=== PATIENT | female | born 1940 | race African-American/Black ===

== ENCOUNTER 2019-08-22 12:24 | Inpatient (IN) | payer MEDICARE, MEDICAID ==
[~2019-08-22] VITALS: Ht 154.9 cm; Wt 117.9 kg
[~2019-08-22 12:24] MED LIST: ACET-3161 PO; ALLO100T57 PO; AMLO10TA4 PO; ASPI-1079 PO; CYAN100069 PO; DOCUSATE PO; FURO40TA5 PO; GABA-531 PO; GLIP10TA3 PO; HYDR-3512 PO; INSULIN SUBCUT; KDUR10 PO; LINA5TAB PO; LORA10TA7 PO; LOSA100T3 PO; MECL12.584 PO; METO5TAB86 PO; MULT-1146 PO; NAPR-679 PO; NEPA1.7D OP; NITR0.4T49 SL; NPH,100V11 SQ; SIMV20TA6 PO; SYSOS OP; TRAV5DRO4 OP; TRU10 EACHEYE; [UNRECOGNIZED DRUG - CODE] OP; [UNRECOGNIZED DRUG - CODE] PO; [UNRECOGNIZED DRUG - CODE] PO
[2019-08-22] MEDS ORDERED: IPRATROPIUM BROMIDE (0.02%) 0.5MG/2.5ML NEB HHN ONE (12:45)
[2019-08-22] MEDS ORDERED: ALBUTEROL (0.083%) 2.5MG/3ML NEB HHN ONE (12:45)
[2019-08-22] MEDS ORDERED: NITROGLYCERIN 50MG PREMIX 250 ML IV ONE (12:45)
[2019-08-22] MEDS ORDERED: METHYLPREDNISOLONE SOD SUCC 125 MG/2 ML VIAL IV ONE (12:45)
[2019-08-22 13:15] LABS: HEMATOCRIT. 32.7 % (36.0-48.0); HEMOGLOBIN. 10.1 g/dL (12.0-16.0); MEAN CORPUSCULAR HEMOGLOBIN 26.1 pg (28.0-32.0); MEAN CORPUSCULAR VOLUME 84.2 fL (81.0-99.0); MEAN PLATELET VOLUME 11.3 fl (7.4-10.4); PLATELET 123 x1000/uL (130-400); RED BLOOD CELL COUNT 3.88 mill/uL (4.2-5.4); RED CELL DISTRIBUTION WIDTH 21.9 % (11.6-14.6)
[2019-08-22 13:23] LABS: CHLORIDE 115 mEq/L (98-107)
[2019-08-22 13:51] LABS: PLATELET ESTIMATE SLIGHTLY DECREASED
[2019-08-22 14:31] LABS: BG BILEVEL POS AIRWAY PRESSURE 15/5; BG CARBOXYHEMOGLOBIN 0.1 % (0.5-1.5); BG DEOXYHEMOGLOBIN 0.5 % (0.0-5.0); BG FRACTION INSPIRED OXYGEN 60; BG HCO3 ACT 24.2 mmol/L (22.0-26.0); BG METHEMOGLOBIN 0.4 % (0.0-1.5); BG OXYGEN SATURATION 99.5 % (92.0-98.5); BG PCO2 53.5 mmHg (35.0-45.0); BG PH 7.274 (7.350-7.450); BG PO2 448.6 mmHg (75.0-100.0); BG SAMPLE SITE RIGHT RADIAL; BG TOTAL HEMOGLOBIN 10.8 g/dL (12.0-18.0); BG VENT MODE MASK - BIPAP
[2019-08-22] MEDS ORDERED: IPRATROPIUM/ALBUTEROL 0.5-3(2.5)MG/3ML NEB HHN PRN (15:30)
[2019-08-22 22:00] VITALS: BP 180/70
[2019-08-22] MEDS: GUAIFENESIN 600MG ER TABLET PO SCH (22:37)
[2019-08-22] MEDS: CLONIDINE 0.2MG TABLET PO PRN (22:38)
[2019-08-22] MEDS: METHYLPREDNISOLONE SOD SUCC 40 MG/ML VIAL IV SCH (22:38)
[2019-08-22 23:06] VITALS: BP 175/70
[2019-08-23] VITALS (12 sets, daily range): BP systolic 163–197; BP diastolic 57–95
[2019-08-23] MEDS: IPRATROPIUM/ALBUTEROL 0.5-3(2.5)MG/3ML NEB HHN SCH ×6 (00:24→22:15)
[2019-08-23] MEDS: CLONIDINE 0.2MG TABLET PO PRN ×5 (01:11→18:06)
[2019-08-23] MEDS: METHYLPREDNISOLONE SOD SUCC 40 MG/ML VIAL IV SCH ×3 (06:29→21:53)
[2019-08-23] MEDS: GUAIFENESIN 600MG ER TABLET PO SCH ×2 (09:03→21:53)
[2019-08-23 09:27] LABS: BG BASE EXCESS -4.4 mmol/L (-2.0-2.0); BG BILEVEL POS AIRWAY PRESSURE 15/5; BG CARBOXYHEMOGLOBIN 0.1 % (0.5-1.5); BG FRACTION INSPIRED OXYGEN 40; BG HCO3 ACT 22.7 mmol/L (22.0-26.0); BG METHEMOGLOBIN 0.3 % (0.0-1.5); BG OXYHEMOGLOBIN 98.6 % (94.0-97.0); BG PCO2 51.5 mmHg (35.0-45.0); BG PH 7.263 (7.350-7.450); BG PO2 159.4 mmHg (75.0-100.0); BG SAMPLE SITE RIGHT RADIAL; BG TOTAL HEMOGLOBIN 10.5 g/dL (12.0-18.0); BG VENT MODE MASK - BIPAP; BG VENT RATE 18 set
[2019-08-23] MEDS ORDERED: DEXTROSE 50% WATER 50ML SYRINGE IV PRN (10:15)
[2019-08-23] MEDS: HYDRALAZINE HCL 50MG TABLET PO SCH ×2 (12:12→21:52)
[2019-08-23] MEDS: GABAPENTIN 300MG CAPSULE PO SCH ×2 (12:12→21:53)
[2019-08-23] MEDS: AMLODIPINE 5MG TABLET PO SCH ×2 (12:12→21:53)
[2019-08-23] MEDS: BLOOD SUGAR DIAGNOSTIC STRIP TEST SCH ×3 (12:44→21:00)
[2019-08-23] MEDS: ENOXAPARIN 40MG/0.4ML SYR SUBCUT SCH (12:54)
[2019-08-23] MEDS: INSULIN LISPRO 100 UNITS/ML SUBCUT SCH ×3 (12:55→22:12)
[2019-08-23 14:15] LABS: HEMOGLOBIN. 9.9 g/dL (12.0-16.0); MEAN CORPUSCULAR HEMOGLOBIN 26.1 pg (28.0-32.0); MEAN CORPUSCULAR VOLUME 84.1 fL (81.0-99.0); MEAN PLATELET VOLUME 11.1 fl (7.4-10.4); PLATELET 110 x1000/uL (130-400); RED CELL DISTRIBUTION WIDTH 21.4 % (11.6-14.6)
[2019-08-23 14:17] LABS: CHLORIDE 110 mEq/L (98-107)
[2019-08-23 14:40] LABS: NUCLEATED RED BLOOD CELLS 1 /100 WBC; PLATELET ESTIMATE SLIGHTLY DECREASED
[2019-08-23] MEDS: INSULIN GLARGINE UD 100 UNITS/ML SYR SUBCUT SCH (15:16)
[2019-08-23] MEDS ORDERED: SODIUM BICARBONATE 8.4% 1 MEQ/ML 50ML SYR IV NR ×2 (15:39→23:00)
[2019-08-23] MEDS ORDERED: CALCIUM CHLORIDE 1GM/10ML SYR IV NR (15:42)
[2019-08-23] MEDS ORDERED: DEXTROSE 50% WATER 50ML SYRINGE IV NR (16:30)
[2019-08-23] MEDS ORDERED: INSULIN REGULAR (HUMULIN R) UD 100 UNITS/ML SYR IV NR (16:30)
[2019-08-23] MEDS ORDERED: SODIUM POLYSTYRENE SULFONATE 15 G/60 ML BOT PO NR (16:30)
[2019-08-23] MEDS ORDERED: FLUO15CR2 TP (17:22)
[2019-08-23] MEDS ORDERED: BUME2TAB7 PO (17:22)
[2019-08-23] MEDS ORDERED: ISOS20TA57 PO (17:22)
[2019-08-23] MEDS ORDERED: HYDR-4134 PO (17:22)
[2019-08-23] MEDS ORDERED: TC1U15 TP (17:22)
[2019-08-23] MEDS ORDERED: ALBU18HF2 IH (17:22)
[2019-08-23] MEDS ORDERED: MUPI1OIN4 TP (17:22)
[2019-08-23] MEDS ORDERED: LINA5TAB PO (17:22)
[2019-08-23] MEDS ORDERED: ATEN-42 PO (17:22)
[2019-08-23] MEDS ORDERED: FAMO20TA8 PO (17:22)
[2019-08-23] MEDS ORDERED: CALC-889 MT (17:22)
[2019-08-23] MEDS: ATENOLOL 25MG TABLET PO SCH (21:53)
[2019-08-23] MEDS: FAMOTIDINE 20MG TABLET PO SCH (21:53)
[2019-08-24] VITALS (13 sets, daily range): BP systolic 136–188; BP diastolic 53–80
[2019-08-24] MEDS ORDERED: INSULIN REGULAR (HUMULIN R) UD 100 UNITS/ML SYR IV NR
[2019-08-24] MEDS ORDERED: DEXTROSE 50% WATER 50ML SYRINGE IV NR
[2019-08-24] MEDS: CLONIDINE 0.2MG TABLET PO PRN (00:52)
[2019-08-24] MEDS ORDERED: SODIUM POLYSTYRENE SULFONATE 15 G/60 ML BOT PO NR (01:00)
[2019-08-24] MEDS: IPRATROPIUM/ALBUTEROL 0.5-3(2.5)MG/3ML NEB HHN SCH ×6 (02:00→19:49)
[2019-08-24 06:09] LABS: HEMATOCRIT. 31.7 % (36.0-48.0); HEMOGLOBIN. 9.9 g/dL (12.0-16.0); MEAN CORPUSCULAR HEMOGLOBIN 25.7 pg (28.0-32.0); MEAN CORPUSCULAR VOLUME 82.6 fL (81.0-99.0); MEAN PLATELET VOLUME 11.3 fl (7.4-10.4); PLATELET 107 x1000/uL (130-400); RED BLOOD CELL COUNT 3.84 mill/uL (4.2-5.4); RED CELL DISTRIBUTION WIDTH 20.6 % (11.6-14.6)
[2019-08-24] MEDS: GABAPENTIN 300MG CAPSULE PO SCH ×3 (06:46→20:54)
[2019-08-24] MEDS: METHYLPREDNISOLONE SOD SUCC 40 MG/ML VIAL IV SCH ×3 (06:46→20:55)
[2019-08-24] MEDS: GLIPIZIDE 10MG TABLET PO SCH (06:46)
[2019-08-24] MEDS: HYDRALAZINE HCL 50MG TABLET PO SCH ×3 (06:47→20:54)
[2019-08-24] MEDS: BLOOD SUGAR DIAGNOSTIC STRIP TEST SCH ×4 (07:13→20:55)
[2019-08-24 07:52] LABS: BG BASE EXCESS -3.1 mmol/L (-2.0-2.0); BG DEOXYHEMOGLOBIN 2.2 % (0.0-5.0); BG HCO3 ACT 23.2 mmol/L (22.0-26.0); BG METHEMOGLOBIN 0.2 % (0.0-1.5); BG OXYGEN SATURATION 97.8 % (92.0-98.5); BG OXYHEMOGLOBIN 97.6 % (94.0-97.0); BG PCO2 47.1 mmHg (35.0-45.0); BG PO2 111.6 mmHg (75.0-100.0); BG SAMPLE SITE RIGHT RADIAL; BG TOTAL HEMOGLOBIN 10.4 g/dL (12.0-18.0); BG VENT MODE NASAL CANNULA
[2019-08-24] MEDS: ISOSORBIDE MONONITRATE 30MG TABLET SR 24HR PO SCH (08:09)
[2019-08-24] MEDS: AMLODIPINE 5MG TABLET PO SCH ×2 (08:09→20:55)
[2019-08-24] MEDS: GUAIFENESIN 600MG ER TABLET PO SCH ×2 (08:09→20:54)
[2019-08-24] MEDS: ALLOPURINOL 100 MG TABLET PO SCH (08:09)
[2019-08-24] MEDS: LOSARTAN POTASSIUM 100 MG TABLET PO SCH (08:09)
[2019-08-24] MEDS: ASPIRIN 81MG TABLET PO SCH (08:10)
[2019-08-24] MEDS: ATENOLOL 25MG TABLET PO SCH (08:10)
[2019-08-24] MEDS: LINAGLIPTIN 5MG TABLET PO SCH (08:10)
[2019-08-24] MEDS: INSULIN LISPRO 100 UNITS/ML SUBCUT SCH ×4 (08:11→21:10)
[2019-08-24 09:56] LABS: PLATELET ESTIMATE DECREASED
[2019-08-24] MEDS: INSULIN GLARGINE UD 100 UNITS/ML SYR SUBCUT SCH (10:11)
[2019-08-24 12:05] LABS: CLARITY URINE TURBID (CLEAR); COLOR URINE YELLOW (YELLOW); KETONES URINE NEGATIVE (NEGATIVE); LEUKOCYTE ESTERASE URINE 3+ (NEGATIVE); NITRITE URINE NEGATIVE (NEGATIVE); OCCULT BLOOD URINE 2+ (NEGATIVE); PROTEIN URINE 3+ (NEGATIVE); SPECIFIC GRAVITY URINE 1.015 (1.005-1.030); UROBILINOGEN URINE 0.2 E.U./dL (0.2-1.0)
[2019-08-24] MEDS: ENOXAPARIN 40MG/0.4ML SYR SUBCUT SCH (13:03)
[2019-08-24] MEDS: FAMOTIDINE 20MG TABLET PO SCH (20:54)
[2019-08-25] VITALS (12 sets, daily range): BP systolic 135–162; BP diastolic 60–73
[2019-08-25] MEDS: IPRATROPIUM/ALBUTEROL 0.5-3(2.5)MG/3ML NEB HHN SCH ×6 (00:37→20:18)
[2019-08-25 05:53] LABS: HEMATOCRIT. 29.9 % (36.0-48.0); HEMOGLOBIN. 9.4 g/dL (12.0-16.0); MEAN CORPUSCULAR HEMOGLOBIN 25.8 pg (28.0-32.0); MEAN CORPUSCULAR VOLUME 81.7 fL (81.0-99.0); MEAN PLATELET VOLUME 10.8 fl (7.4-10.4); PLATELET 100 x1000/uL (130-400); RED BLOOD CELL COUNT 3.66 mill/uL (4.2-5.4); RED CELL DISTRIBUTION WIDTH 20.8 % (11.6-14.6)
[2019-08-25] MEDS: METHYLPREDNISOLONE SOD SUCC 40 MG/ML VIAL IV SCH ×2 (05:54→13:16)
[2019-08-25] MEDS: GABAPENTIN 300MG CAPSULE PO SCH ×3 (05:55→21:41)
[2019-08-25] MEDS: HYDRALAZINE HCL 50MG TABLET PO SCH (05:55)
[2019-08-25] MEDS: GLIPIZIDE 10MG TABLET PO SCH (05:55)
[2019-08-25] MEDS: BLOOD SUGAR DIAGNOSTIC STRIP TEST SCH ×4 (08:06→21:43)
[2019-08-25] MEDS: AMLODIPINE 5MG TABLET PO SCH ×2 (08:29→21:41)
[2019-08-25] MEDS: LOSARTAN POTASSIUM 100 MG TABLET PO SCH (08:29)
[2019-08-25] MEDS: ASPIRIN 81MG TABLET PO SCH (08:29)
[2019-08-25] MEDS: ALLOPURINOL 100 MG TABLET PO SCH (08:30)
[2019-08-25] MEDS: ISOSORBIDE MONONITRATE 30MG TABLET SR 24HR PO SCH (08:30)
[2019-08-25] MEDS: ATENOLOL 25MG TABLET PO SCH ×2 (08:30→21:42)
[2019-08-25] MEDS: GUAIFENESIN 600MG ER TABLET PO SCH ×2 (08:31→21:42)
[2019-08-25] MEDS: INSULIN LISPRO 100 UNITS/ML SUBCUT SCH ×4 (08:33→22:10)
[2019-08-25] MEDS: LINAGLIPTIN 5MG TABLET PO SCH (08:43)
[2019-08-25] MEDS: INSULIN GLARGINE UD 100 UNITS/ML SYR SUBCUT SCH (10:17)
[2019-08-25] MEDS ORDERED: BUMETANIDE 1MG TABLET PO SCH ×2 (13:00→15:00)
[2019-08-25] MEDS: HYDRALAZINE HCL 100MG TABLET PO SCH ×2 (13:16→21:42)
[2019-08-25] MEDS: ENOXAPARIN 40MG/0.4ML SYR SUBCUT SCH (13:17)
[2019-08-25 16:11] LABS: PLATELET ESTIMATE DECREASED
[2019-08-25] MEDS: BUMETANIDE 1MG TABLET PO SCH (17:56)
[2019-08-25] MEDS: FAMOTIDINE 20MG TABLET PO SCH (21:41)
[2019-08-26] VITALS (10 sets, daily range): BP systolic 112–164; BP diastolic 53–79
[2019-08-26] MEDS: IPRATROPIUM/ALBUTEROL 0.5-3(2.5)MG/3ML NEB HHN SCH ×4 (00:18→12:19)
[2019-08-26 06:30] LABS: HEMATOCRIT. 30.2 % (36.0-48.0); HEMOGLOBIN. 9.6 g/dL (12.0-16.0); MEAN CORPUSCULAR HEMOGLOBIN 25.7 pg (28.0-32.0); RED BLOOD CELL COUNT 3.73 mill/uL (4.2-5.4); RED CELL DISTRIBUTION WIDTH 20.1 % (11.6-14.6)
[2019-08-26] MEDS: GABAPENTIN 300MG CAPSULE PO SCH ×2 (06:40→13:14)
[2019-08-26] MEDS: HYDRALAZINE HCL 100MG TABLET PO SCH ×2 (06:41→13:15)
[2019-08-26] MEDS: GLIPIZIDE 10MG TABLET PO SCH (06:41)
[2019-08-26] MEDS: BLOOD SUGAR DIAGNOSTIC STRIP TEST SCH ×2 (06:41→11:44)
[2019-08-26] MEDS: ISOSORBIDE MONONITRATE 30MG TABLET SR 24HR PO SCH (08:39)
[2019-08-26] MEDS: BUMETANIDE 1MG TABLET PO SCH (08:39)
[2019-08-26] MEDS: GUAIFENESIN 600MG ER TABLET PO SCH (08:39)
[2019-08-26] MEDS: ASPIRIN 81MG TABLET PO SCH (08:39)
[2019-08-26] MEDS: ALLOPURINOL 100 MG TABLET PO SCH (08:39)
[2019-08-26] MEDS: LOSARTAN POTASSIUM 100 MG TABLET PO SCH (08:39)
[2019-08-26] MEDS: LINAGLIPTIN 5MG TABLET PO SCH (08:39)
[2019-08-26] MEDS: ATENOLOL 25MG TABLET PO SCH (08:40)
[2019-08-26] MEDS: AMLODIPINE 5MG TABLET PO SCH (08:40)
[2019-08-26] MEDS: INSULIN LISPRO 100 UNITS/ML SUBCUT SCH ×2 (08:41→13:17)
[2019-08-26] MEDS ORDERED: METHYLPREDNISOLONE SOD SUCC 40 MG/ML VIAL IV SCH (09:00)
[2019-08-26 10:28] LABS: PLATELET 106 x1000/uL (130-400)
[2019-08-26 10:34] LABS: NUCLEATED RED BLOOD CELLS 2 /100 WBC; PLATELET ESTIMATE SLIGHTLY DECREASED
[2019-08-26] MEDS: INSULIN GLARGINE UD 100 UNITS/ML SYR SUBCUT SCH (10:52)
[2019-08-26] MEDS: ENOXAPARIN 40MG/0.4ML SYR SUBCUT SCH (13:15)
[2019-08-26] MEDS ORDERED: FLUCONAZOLE 150MG TABLET PO NR (16:00)
== END 2019-08-26 15:32 | disposition home health service (06) | DRG 291 ==
LOC: ER 12:24 → CANRESERV 15:23 → ENRESERV 15:23 → EDBEDREQSVC 16:28 → 5EST 16:45 → EDBEDREQ 16:48 → ENRESERV 19:30 → 5EST 22:04
PROVIDERS: ADMIT Family Medicine Adult Medicine; ATTEND Family Medicine Adult Medicine
PROC: 5A09357 Assistance with Respiratory Ventilation, Less than 24 Consecutive Hours, Continuous Positive Airway Pressure (ICD-10-PCS; principal; 2019-08-22)
PROC: 5A09357 Assistance with Respiratory Ventilation, Less than 24 Consecutive Hours, Continuous Positive Airway Pressure (ICD-10-PCS; 2019-08-24)
PROC: 5A09357 Assistance with Respiratory Ventilation, Less than 24 Consecutive Hours, Continuous Positive Airway Pressure (ICD-10-PCS; 2019-08-25)
PROC: 5A09357 Assistance with Respiratory Ventilation, Less than 24 Consecutive Hours, Continuous Positive Airway Pressure (ICD-10-PCS; 2019-08-26)
DX: I13.0 Hypertensive heart and chronic kidney disease with heart failure and stage 1 through stage 4 chronic kidney disease, or unspecified chronic kidney disease (principal); J96.00 Acute respiratory failure, unspecified whether with hypoxia or hypercapnia; I50.43 Acute on chronic combined systolic (congestive) and diastolic (congestive) heart failure; J44.1 Chronic obstructive pulmonary disease with (acute) exacerbation; N18.4 Chronic kidney disease, stage 4 (severe); N39.0 Urinary tract infection, site not specified; N17.9 Acute kidney failure, unspecified; Z68.42 Body mass index [BMI] 45.0-49.9, adult; D64.9 Anemia, unspecified; E11.22 Type 2 diabetes mellitus with diabetic chronic kidney disease; E78.5 Hyperlipidemia, unspecified; E87.5 Hyperkalemia; D69.6 Thrombocytopenia, unspecified; I44.1 Atrioventricular block, second degree; E66.01 Morbid (severe) obesity due to excess calories; B37.3 Candidiasis of vulva and vagina; E11.40 Type 2 diabetes mellitus with diabetic neuropathy, unspecified; G47.33 Obstructive sleep apnea (adult) (pediatric); I27.29 Other secondary pulmonary hypertension; I49.5 Sick sinus syndrome; M10.9 Gout, unspecified; Z79.4 Long term (current) use of insulin; Z90.710 Acquired absence of both cervix and uterus; Z95.0 Presence of cardiac pacemaker; Z99.81 Dependence on supplemental oxygen; Z88.0 Allergy status to penicillin; Z79.82 Long term (current) use of aspirin; Z79.899 Other long term (current) drug therapy; Z79.1 Long term (current) use of non-steroidal anti-inflammatories (NSAID)
CPT/HCPCS: 36415; 36600; 71045; 76770; 80048; 81003; 82375; 82570; 82575; 82805; 82962; 83735; 83880; 84132; 84156; 84484; 93005; 93306; 94640; 94660; 96374; 97162; 99291; J1650; J1815; J2920; J2930; J3490; J7611; J7620; A4315

== ENCOUNTER 2019-10-24 13:40 | Inpatient (IN) | payer MEDICARE, MEDICAID ==
[~2019-10-24] VITALS: Ht 154.9 cm; Wt 107.0 kg
[~2019-10-24 13:40] MED LIST changes: -ACET-3161 PO; +ALBU18HF2 IH; -AMLO10TA4 PO; +ATEN-42 PO; +BUME2TAB7 PO; +CALC-889 MT; -CYAN100069 PO; -DOCUSATE PO; +FAMO20TA8 PO; +FLUO15CR2 TP; -FURO40TA5 PO; -HYDR-3512 PO; +HYDR-4134 PO; +ISOS20TA57 PO; -KDUR10 PO; -MECL12.584 PO; -METO5TAB86 PO; -MULT-1146 PO; +MUPI1OIN4 TP; -NAPR-679 PO; -NEPA1.7D OP; -NITR0.4T49 SL; -NPH,100V11 SQ; -SIMV20TA6 PO; -SYSOS OP; +TC1U15 TP; -[UNRECOGNIZED DRUG - CODE] OP; -[UNRECOGNIZED DRUG - CODE] PO; -[UNRECOGNIZED DRUG - CODE] PO
[2019-10-24] MEDS ORDERED: IPRATROPIUM BROMIDE (0.02%) 0.5MG/2.5ML NEB HHN STA (15:25)
[2019-10-24] MEDS ORDERED: ALBUTEROL (0.083%) 2.5MG/3ML NEB HHN STA (15:25)
[2019-10-24 16:01] LABS: CHLORIDE 118 mEq/L (98-107)
[2019-10-24 16:08] LABS: HEMATOCRIT. 31.8 % (36.0-48.0); HEMOGLOBIN. 9.9 g/dL (12.0-16.0); MEAN CORPUSCULAR HEMOGLOBIN 25.6 pg (28.0-32.0); MEAN CORPUSCULAR VOLUME 82.4 fL (81.0-99.0); PLATELET 90 x1000/uL (130-400); RED BLOOD CELL COUNT 3.87 mill/uL (4.2-5.4); RED CELL DISTRIBUTION WIDTH 20.8 % (11.6-14.6)
[2019-10-24 17:35] LABS: PLATELET ESTIMATE DECREASED
[2019-10-24] MEDS ORDERED: FUROSEMIDE 40MG/4ML VIAL IVP ONE (19:30)
[2019-10-25] MEDS ORDERED: IPRATROPIUM/ALBUTEROL 0.5-3(2.5)MG/3ML NEB NEB PRN (00:15)
[2019-10-25] MEDS ORDERED: CLONIDINE 0.1MG TABLET PO PRN (00:15)
[2019-10-25] MEDS ORDERED: MAGNESIUM/ALUMINUM HYDROXIDE/SIMETHICONE 30ML UDC PO PRN (00:15)
[2019-10-25] MEDS ORDERED: ONDANSETRON HCL 4MG/2ML INJ IV PRN (00:15)
[2019-10-25] MEDS ORDERED: MORPHINE SULFATE 2 MG/ML CPJ (NOT FOR IM USE) IV PRN (00:15)
[2019-10-25] MEDS ORDERED: DOCUSATE SODIUM 100MG CAPSULE PO PRN (00:15)
[2019-10-25] MEDS ORDERED: ACETAMINOPHEN 325MG TABLET PO PRN (00:15)
[2019-10-25] MEDS: AMLODIPINE 10MG TABLET PO SCH ×2 (03:10→09:28)
[2019-10-25] MEDS ORDERED: SODIUM POLYSTYRENE SULFONATE 15 G/60 ML BOT PO SCH (04:00)
[2019-10-25] MEDS ORDERED: DEXTROSE 50% WATER 50ML SYRINGE IV PRN (04:45)
[2019-10-25 05:26] VITALS: BP 168/65
[2019-10-25] MEDS: BLOOD SUGAR DIAGNOSTIC STRIP TEST SCH ×4 (06:34→21:30)
[2019-10-25] MEDS: INSULIN LISPRO 100 UNITS/ML SUBCUT SCH ×4 (06:34→21:00)
[2019-10-25 08:00] VITALS: BP 165/76
[2019-10-25] MEDS ORDERED: FUROSEMIDE 40MG/4ML VIAL IV SCH (09:00)
[2019-10-25] MEDS: LISINOPRIL 20MG TABLET PO SCH (09:28)
[2019-10-25] MEDS ORDERED: LOSARTAN POTASSIUM 100 MG TABLET PO SCH (10:00)
[2019-10-25 11:00] VITALS: BP 181/75
[2019-10-25] MEDS: GUAIFENESIN 200MG/10ML SUGAR FREE UDC PO PRN (11:15)
[2019-10-25] MEDS: LINAGLIPTIN 5MG TABLET PO SCH (11:17)
[2019-10-25] MEDS: ASPIRIN 81MG TABLET PO SCH (11:17)
[2019-10-25] MEDS: ISOSORBIDE MONONITRATE 30MG TABLET SR 24HR PO SCH (11:17)
[2019-10-25] MEDS: ATENOLOL 25MG TABLET PO SCH (11:18)
[2019-10-25] MEDS: ALLOPURINOL 100 MG TABLET PO SCH (11:18)
[2019-10-25] MEDS: LORATADINE 10MG TABLET PO SCH (11:18)
[2019-10-25] MEDS: AMLODIPINE 5MG TABLET PO SCH (11:40)
[2019-10-25 12:00] VITALS: BP 175/69
[2019-10-25] MEDS: CALCIUM CARBONATE/VITAMIN D3 500MG TABLET PO SCH ×2 (13:34→16:21)
[2019-10-25] MEDS: HYDRALAZINE HCL 25MG TABLET PO SCH ×2 (13:34→21:35)
[2019-10-25 16:00] VITALS: BP 149/65
[2019-10-25] MEDS ORDERED: GUAIFENESIN-DM 200MG-20MG/10ML UDC PO PRN (16:00)
[2019-10-25] MEDS: GABAPENTIN 300MG CAPSULE PO SCH (16:21)
[2019-10-25] MEDS: GLIPIZIDE 10MG TABLET PO SCH (16:21)
[2019-10-25] MEDS: FUROSEMIDE 40MG/4ML VIAL IV SCH (16:22)
[2019-10-25 20:00] VITALS: BP 169/60
[2019-10-25] MEDS: IPRATROPIUM/ALBUTEROL 0.5-3(2.5)MG/3ML NEB HHN SCH (21:43)
[2019-10-26] VITALS: BP 143/56
[2019-10-26] MEDS: IPRATROPIUM/ALBUTEROL 0.5-3(2.5)MG/3ML NEB HHN SCH ×4 (02:04→20:46)
[2019-10-26 04:00] VITALS: BP 154/65
[2019-10-26] MEDS: BLOOD SUGAR DIAGNOSTIC STRIP TEST SCH ×4 (06:48→20:44)
[2019-10-26] MEDS: HYDRALAZINE HCL 25MG TABLET PO SCH ×4 (06:53→22:54)
[2019-10-26] MEDS: FUROSEMIDE 40MG/4ML VIAL IV SCH ×2 (06:53→17:06)
[2019-10-26] MEDS: GLIPIZIDE 10MG TABLET PO SCH ×2 (07:20→17:07)
[2019-10-26 07:26] LABS: CHLORIDE 115 mEq/L (98-107)
[2019-10-26 07:35] LABS: LDL CHOLESTEROL 46 mg/dL (5-100)
[2019-10-26 07:36] LABS: HDL CHOLESTEROL 51 mg/dL (40-59)
[2019-10-26] MEDS: INSULIN LISPRO 100 UNITS/ML SUBCUT SCH ×4 (07:46→20:44)
[2019-10-26 07:53] LABS: HEMATOCRIT. 30.5 % (36.0-48.0); HEMOGLOBIN. 9.3 g/dL (12.0-16.0); MEAN CORPUSCULAR HEMOGLOBIN 25.3 pg (28.0-32.0); MEAN CORPUSCULAR VOLUME 83.1 fL (81.0-99.0); MEAN PLATELET VOLUME 11.5 fl (7.4-10.4); PLATELET 84 x1000/uL (130-400); RED BLOOD CELL COUNT 3.67 mill/uL (4.2-5.4); RED CELL DISTRIBUTION WIDTH 20.5 % (11.6-14.6)
[2019-10-26 08:00] VITALS: BP 168/64
[2019-10-26] MEDS: LORATADINE 10MG TABLET PO SCH (08:44)
[2019-10-26] MEDS: CALCIUM CARBONATE/VITAMIN D3 500MG TABLET PO SCH ×3 (08:44→17:06)
[2019-10-26] MEDS: AMLODIPINE 5MG TABLET PO SCH (08:44)
[2019-10-26] MEDS: ALLOPURINOL 100 MG TABLET PO SCH (08:45)
[2019-10-26] MEDS: ASPIRIN 81MG TABLET PO SCH (08:45)
[2019-10-26] MEDS: ATENOLOL 25MG TABLET PO SCH (08:45)
[2019-10-26] MEDS: AMLODIPINE 10MG TABLET PO SCH (08:45)
[2019-10-26] MEDS: ISOSORBIDE MONONITRATE 30MG TABLET SR 24HR PO SCH (08:45)
[2019-10-26] MEDS: GABAPENTIN 300MG CAPSULE PO SCH ×2 (08:46→17:06)
[2019-10-26] MEDS: FAMOTIDINE 20MG TABLET PO SCH (08:46)
[2019-10-26] MEDS: LISINOPRIL 20MG TABLET PO SCH (08:46)
[2019-10-26] MEDS: LINAGLIPTIN 5MG TABLET PO SCH (09:00)
[2019-10-26] MEDS: GUAIFENESIN 200MG/10ML SUGAR FREE UDC PO PRN (09:07)
[2019-10-26 12:00] VITALS: BP 122/62
[2019-10-26] MEDS: CLONIDINE 0.2MG TABLET PO SCH ×2 (14:16→22:00)
[2019-10-26 16:00] VITALS: BP 132/60
[2019-10-26 20:00] VITALS: BP 125/50
[2019-10-27] VITALS: BP 123/54
[2019-10-27] MEDS: IPRATROPIUM/ALBUTEROL 0.5-3(2.5)MG/3ML NEB HHN SCH ×4 (00:44→21:47)
[2019-10-27 04:00] VITALS: BP 127/88
[2019-10-27] MEDS: CLONIDINE 0.2MG TABLET PO SCH ×3 (06:00→22:14)
[2019-10-27] MEDS: FUROSEMIDE 40MG/4ML VIAL IV SCH ×2 (06:44→17:53)
[2019-10-27] MEDS: GLIPIZIDE 10MG TABLET PO SCH ×2 (06:45→17:53)
[2019-10-27] MEDS: HYDRALAZINE HCL 25MG TABLET PO SCH ×3 (06:45→22:14)
[2019-10-27] MEDS: BLOOD SUGAR DIAGNOSTIC STRIP TEST SCH ×4 (06:57→21:11)
[2019-10-27] MEDS: GUAIFENESIN 200MG/10ML SUGAR FREE UDC PO PRN (07:02)
[2019-10-27] MEDS: INSULIN LISPRO 100 UNITS/ML SUBCUT SCH ×4 (07:50→21:00)
[2019-10-27 08:29] VITALS: BP 127/82
[2019-10-27] MEDS: GABAPENTIN 300MG CAPSULE PO SCH ×2 (08:49→17:53)
[2019-10-27] MEDS: LORATADINE 10MG TABLET PO SCH (08:49)
[2019-10-27] MEDS: LINAGLIPTIN 5MG TABLET PO SCH (08:49)
[2019-10-27] MEDS: CALCIUM CARBONATE/VITAMIN D3 500MG TABLET PO SCH ×3 (08:49→17:53)
[2019-10-27] MEDS: ALLOPURINOL 100 MG TABLET PO SCH (08:49)
[2019-10-27] MEDS: ASPIRIN 81MG TABLET PO SCH (08:49)
[2019-10-27] MEDS: ISOSORBIDE MONONITRATE 30MG TABLET SR 24HR PO SCH (08:51)
[2019-10-27] MEDS: ATENOLOL 25MG TABLET PO SCH (08:52)
[2019-10-27] MEDS: AMLODIPINE 5MG TABLET PO SCH (08:52)
[2019-10-27] MEDS: LISINOPRIL 20MG TABLET PO SCH (08:53)
[2019-10-27] MEDS: FAMOTIDINE 20MG TABLET PO SCH (08:58)
[2019-10-27 12:00] VITALS: BP 133/55
[2019-10-27 13:26] LABS: PLATELET ESTIMATE DECREASED
[2019-10-27 16:00] VITALS: BP 135/54
[2019-10-27 20:00] VITALS: BP 165/72
[2019-10-28] VITALS: BP 152/65
[2019-10-28] MEDS: IPRATROPIUM/ALBUTEROL 0.5-3(2.5)MG/3ML NEB HHN SCH ×2 (02:34→09:17)
[2019-10-28 04:00] VITALS: BP 138/50
[2019-10-28] MEDS: BLOOD SUGAR DIAGNOSTIC STRIP TEST SCH ×2 (06:43→12:20)
[2019-10-28] MEDS: CLONIDINE 0.2MG TABLET PO SCH ×2 (06:52→14:32)
[2019-10-28] MEDS: FUROSEMIDE 40MG/4ML VIAL IV SCH (06:52)
[2019-10-28] MEDS: HYDRALAZINE HCL 25MG TABLET PO SCH ×2 (06:53→14:32)
[2019-10-28] MEDS: GLIPIZIDE 10MG TABLET PO SCH (06:53)
[2019-10-28 07:37] LABS: CHLORIDE 111 mEq/L (98-107)
[2019-10-28] MEDS: INSULIN LISPRO 100 UNITS/ML SUBCUT SCH ×2 (07:50→12:50)
[2019-10-28 07:54] LABS: BASOPHILS % 0.8 % (0.0-2.0); EOSINOPHILS % 3.8 % (0.0-5.0); HEMOGLOBIN. 9.6 g/dL (12.0-16.0); LYMPHOCYTES % 56.6 % (20.0-50.0); MEAN CORPUSCULAR HEMOGLOBIN 25.8 pg (28.0-32.0); MEAN CORPUSCULAR VOLUME 83.3 fL (81.0-99.0); MONOCYTES % 5.8 % (2.0-8.0); RED BLOOD CELL COUNT 3.72 mill/uL (4.2-5.4); RED CELL DISTRIBUTION WIDTH 20.3 % (11.6-14.6)
[2019-10-28 08:02] VITALS: BP 146/77
[2019-10-28] MEDS: AMLODIPINE 5MG TABLET PO SCH (09:00)
[2019-10-28] MEDS: ALLOPURINOL 100 MG TABLET PO SCH (09:00)
[2019-10-28] MEDS: ASPIRIN 81MG TABLET PO SCH (09:00)
[2019-10-28] MEDS: LORATADINE 10MG TABLET PO SCH (09:00)
[2019-10-28] MEDS: LINAGLIPTIN 5MG TABLET PO SCH (09:00)
[2019-10-28] MEDS: ATENOLOL 25MG TABLET PO SCH (09:01)
[2019-10-28] MEDS: ISOSORBIDE MONONITRATE 30MG TABLET SR 24HR PO SCH (09:02)
[2019-10-28] MEDS: LISINOPRIL 20MG TABLET PO SCH (09:02)
[2019-10-28] MEDS: FAMOTIDINE 20MG TABLET PO SCH (09:02)
[2019-10-28] MEDS: CALCIUM CARBONATE/VITAMIN D3 500MG TABLET PO SCH ×2 (09:02→14:32)
[2019-10-28] MEDS: GABAPENTIN 300MG CAPSULE PO SCH (09:02)
[2019-10-28] MEDS: GUAIFENESIN 200MG/10ML SUGAR FREE UDC PO PRN (09:03)
[2019-10-28] MEDS ORDERED: SODIUM POLYSTYRENE SULFONATE 15 G/60 ML BOT PO NR (11:00)
[2019-10-28 12:36] VITALS: BP 133/52
[2019-10-28 13:28] VITALS: BP 133/52
[2019-10-28 19:56] LABS: MEAN PLATELET VOLUME 10.9 fl (7.4-10.4); PLATELET 91 x1000/uL (130-400)
== END 2019-10-28 15:20 | disposition home or self-care (01) | DRG 291 ==
LOC: ER 13:40 → EDBEDREQ 19:41 → EDBEDREQTM 19:41 → ENRESERV 10-25 02:41 → 6WST 10-25 04:37
PROVIDERS: ADMIT Hospitalist; ATTEND Hospitalist
DX: I13.0 Hypertensive heart and chronic kidney disease with heart failure and stage 1 through stage 4 chronic kidney disease, or unspecified chronic kidney disease (principal); I50.33 Acute on chronic diastolic (congestive) heart failure; J96.00 Acute respiratory failure, unspecified whether with hypoxia or hypercapnia; N18.4 Chronic kidney disease, stage 4 (severe); N17.9 Acute kidney failure, unspecified; Z68.41 Body mass index [BMI] 40.0-44.9, adult; E11.40 Type 2 diabetes mellitus with diabetic neuropathy, unspecified; G47.33 Obstructive sleep apnea (adult) (pediatric); Z95.0 Presence of cardiac pacemaker; E66.01 Morbid (severe) obesity due to excess calories; E11.22 Type 2 diabetes mellitus with diabetic chronic kidney disease; D69.6 Thrombocytopenia, unspecified; D63.8 Anemia in other chronic diseases classified elsewhere; E78.5 Hyperlipidemia, unspecified; E87.5 Hyperkalemia; J44.9 Chronic obstructive pulmonary disease, unspecified; M10.9 Gout, unspecified; Z90.710 Acquired absence of both cervix and uterus; Z99.81 Dependence on supplemental oxygen; Z88.0 Allergy status to penicillin; Z79.82 Long term (current) use of aspirin; Z79.4 Long term (current) use of insulin; Z79.899 Other long term (current) drug therapy
CPT/HCPCS: 36415; 71045; 80048; 80061; 82962; 83880; 84484; 93005; 93306; 93970; 94640; 99285; C1893; J1815; J1940; J7611; J7620

== ENCOUNTER → 2024-04-21 | Outpatient (CLI) | payer MEDICARE, MEDICAID ==
[~2024-04-21] MED LIST changes: -GABA-531 PO; +GABA-532 PO; -HYDR-4134 PO; +HYDR25TA78 PO; +ISMO20 PO; -ISOS20TA57 PO; +LOSA-415 PO; -LOSA100T3 PO
== END | disposition home or self-care (01) ==
LOC: RAD 11:24
PROVIDERS: ATTEND Specialist
DX: R05.9 Cough, unspecified (principal)
CPT/HCPCS: 71046

== ENCOUNTER → 2024-08-27 | Outpatient (CLI) | payer MEDICARE, MEDICAID | END | disposition home or self-care (01) | LOC: RAD 12:00 | PROVIDERS: ATTEND Specialist | DX: R07.82 Intercostal pain (principal); I51.7 Cardiomegaly; Z95.0 Presence of cardiac pacemaker | CPT/HCPCS: 71101 ==

== ENCOUNTER 2024-09-02 12:16 | Inpatient (IN) | payer MEDICARE, MEDICAID ==
[~2024-09-02] VITALS: Ht 167.6 cm; Wt 93.2 kg
[2024-09-02 13:26] LABS: CHLORIDE 100 mEq/L (98-107); POTASSIUM 4.2 mEq/L (3.5-5.1); SODIUM 134 mEq/L (136-145)
[2024-09-02 13:27] LABS: CALCIUM 8.5 mg/dL (8.7-10.4); CARBON DIOXIDE 27 mEq/L (21-32)
[2024-09-02 13:28] LABS: PARTIAL THROMBOPLASTIN TIME 32.8 sec (23.4-31.0); PROTHROMBIN TIME 11.5 sec (9.6-11.0)
[2024-09-02 13:32] LABS: UREA NITROGEN BLOOD 45 mg/dL (9-23)
[2024-09-02 13:40] LABS: GLUCOSE 36 mg/dL (70-105)
[2024-09-02 13:41] LABS: BASOPHILS % 0.8 % (0.0-2.0); CREATININE 7.6 mg/dL (0.6-1.0); EOSINOPHILS % 1.2 % (0.0-5.0); HEMATOCRIT. 34.7 % (36.0-48.0); HEMOGLOBIN. 11.5 g/dL (12.0-16.0); LYMPHOCYTES % 17.6 % (20.0-50.0); MEAN CORPUSCULAR HEMOGLOBIN 30.6 pg (28.0-32.0); MEAN CORPUSCULAR HGB CONC 33.1 g/dL (31.0-37.0); MEAN CORPUSCULAR VOLUME 92.4 fL (81.0-99.0); MONOCYTES % 7.5 % (2.0-8.0); NEUTROPHILS % 72.9 % (40.0-76.0); RED BLOOD CELL COUNT 3.75 mill/uL (4.2-5.4); RED CELL DISTRIBUTION WIDTH 17.2 % (11.6-14.6); TROPONIN I HIGH SENSITIVITY 37 ng/L (3.0-34); WHITE BLOOD COUNT 7.7 x1000/uL (4.5-11.0)
[2024-09-02 13:45] LABS: DIFFERENTIAL COMMENT 1
[2024-09-02] MEDS: DEXTROSE 50% WATER 50ML SYRINGE IV ONE ×3 (13:45→20:14)
[2024-09-02 15:30] LABS: MEAN PLATELET VOLUME 10.2 fl (7.4-10.4); PLATELET 90 x1000/uL (130-400)
[2024-09-02 15:37] LABS: TROPONIN I HIGH SENSITIVITY 36 ng/L (3.0-34)
[2024-09-02] MEDS: DEXT 5%/0.45% NACL 1000ML 1,000 ML IV ONE (17:24)
[2024-09-02] MEDS: DEXTROSE 50% WATER 50ML SYRINGE IV NR ×2 (20:28→23:13)
[2024-09-02] MEDS: DEXT 10% WATER 1,000 ML IV ONE (20:29)
[2024-09-02 22:43] LABS: HEPATITIS B SURFACE ANTIGEN NEGATIVE (Negative)
[2024-09-02 23:04] LABS: HEPATITIS A AB IGM NEGATIVE (Negative)
[2024-09-02 23:05] LABS: HEPATITIS B CORE AB IGM NEGATIVE (Negative); HEPATITIS C AB NON REACTIVE (Neg) (Negative)
[2024-09-02 23:23] VITALS: BP 123/60; PULSE 60; RESP 20; TEMP 36.6404
[2024-09-03] VITALS (19 sets, daily range): BP systolic 97–174; BP diastolic 45–98; PULSE 60–72; RESP 15–28; TEMP 36.3918–37.00296; O2SAT 95–100
[2024-09-03] MEDS: BLOOD SUGAR DIAGNOSTIC STRIP TEST SCH (04:00)
[2024-09-03] MEDS: INSULIN LISPRO 100 UNITS/ML SUBCUT SCH (04:00)
[2024-09-03] MEDS: DEXTROSE 50% WATER 50ML SYRINGE IV PRN ×2 (05:05→10:25)
[2024-09-03] MEDS: GLUCAGON,HUMAN RECOMBINANT 1MG/VIAL IM NR (05:11)
[2024-09-03 06:20] LABS: POTASSIUM 4.1 mEq/L (3.5-5.1)
[2024-09-03 06:21] LABS: CALCIUM 8.4 mg/dL (8.7-10.4)
[2024-09-03 06:58] LABS: HEMATOCRIT. 33.3 % (36.0-48.0); MEAN CORPUSCULAR HEMOGLOBIN 30.2 pg (28.0-32.0); MEAN CORPUSCULAR HGB CONC 33.1 g/dL (31.0-37.0); MEAN CORPUSCULAR VOLUME 91.4 fL (81.0-99.0); MEAN PLATELET VOLUME 10.7 fl (7.4-10.4); PLATELET 84 x1000/uL (130-400); RED BLOOD CELL COUNT 3.65 mill/uL (4.2-5.4); RED CELL DISTRIBUTION WIDTH 17.7 % (11.6-14.6); WHITE BLOOD COUNT 7.3 x1000/uL (4.5-11.0)
[2024-09-03 06:59] LABS: CREATININE 8.1 mg/dL (0.6-1.0)
[2024-09-03 07:24] LABS: DIFFERENTIAL COMMENT 1
[2024-09-03] MEDS ORDERED: DEXTROSE 10% WATER 500 ML IV ONE (08:15)
[2024-09-03] MEDS: LOSARTAN 100 MG TABLET PO SCH (09:00)
[2024-09-03] MEDS: CALCIUM CARBONATE/VITAMIN D3 500MG TABLET PO SCH (09:00)
[2024-09-03] MEDS: ATENOLOL 25MG TABLET PO SCH (09:00)
[2024-09-03] MEDS ORDERED: ASPIRIN 81MG TABLET PO SCH (09:00)
[2024-09-03] MEDS: DORZOLAMIDE 2% OPHTH 10 ML BOTTLE EACHEYE SCH (09:00)
[2024-09-03] MEDS: DEXTROSE 10% WATER 1,000 ML IV ONE (09:27)
[2024-09-03] MEDS: FAMOTIDINE 20MG TABLET PO SCH (10:39)
[2024-09-03] MEDS: LINAGLIPTIN 5MG TABLET PO SCH (10:40)
[2024-09-03] MEDS: LORATADINE 10MG TABLET PO SCH (10:40)
[2024-09-03] MEDS: HYDRALAZINE HCL 25MG TABLET PO SCH (10:43)
[2024-09-03] MEDS: GABAPENTIN 100MG CAPSULE PO SCH (10:44)
[2024-09-03] MEDS: ALLOPURINOL 100 MG TABLET PO SCH (10:56)
[2024-09-03] MEDS: ISOSORBIDE MONONITRATE 30MG TABLET SR 24HR PO SCH (10:58)
[2024-09-03 15:28] LABS: PLATELET ESTIMATE DECREASED
[2024-09-03] MEDS: IPRATROPIUM/ALBUTEROL 0.5-3(2.5)MG/3ML NEB HHN PRN (18:03)
[2024-09-03] MEDS ORDERED: TRAVOPROST OP SCH (21:00)
[2024-09-03] MEDS: GUAIFENESIN 600MG ER TABLET PO SCH (21:00)
[2024-09-03] MEDS: LATANOPROST 0.005% OPHTH DROPS 2.5ML BOTHEYE SCH (21:07)
[2024-09-04] VITALS (14 sets, daily range): BP systolic 110–151; BP diastolic 36–64; PULSE 60; RESP 17–25; TEMP 36.00288–37.11408; O2SAT 95–100
[2024-09-04] MEDS ORDERED: DORZOLAMIDE 2% OPHTH 10 ML BOTTLE EACHEYE SCH (09:00)
[2024-09-04] MEDS: SEVELAMER CARBONATE 800 MG TABLET PO SCH (14:02)
[2024-09-05] VITALS (15 sets, daily range): BP systolic 96–134; BP diastolic 41–74; PULSE 60; RESP 15–21; TEMP 36.22512–37.05852; O2SAT 95–100
[2024-09-05] MEDS: FOLIC ACID/VITAMIN B COMP W-C TABLET PO SCH (09:26)
[2024-09-05] MEDS: INSULIN LISPRO 100 UNITS/ML SUBCUT SCH (21:00)
[2024-09-05] MEDS: BLOOD SUGAR DIAGNOSTIC STRIP TEST SCH (21:31)
[2024-09-06] VITALS (18 sets, daily range): BP systolic 98–147; BP diastolic 46–94; PULSE 59–61; RESP 13–24; TEMP 36.33624–37.00296; O2SAT 97–100
== END 2024-09-06 18:48 | disposition home or self-care (01) | DRG 637 ==
LOC: ER 13:03 → EDBEDREQTM 16:51 → EDBEDREQ 16:51 → EDBEDREQSVC 18:03 → 5EST 22:45
PROVIDERS: ADMIT Internal Medicine; ATTEND Internal Medicine
PROC: 02HV33Z Insertion of Infusion Device into Superior Vena Cava, Percutaneous Approach (ICD-10-PCS; principal; 2024-09-03)
PROC: B548ZZA Ultrasonography of Superior Vena Cava, Guidance (ICD-10-PCS; 2024-09-03)
PROC: 5A1D70Z Performance of Urinary Filtration, Intermittent, Less than 6 Hours Per Day (ICD-10-PCS; 2024-09-03)
PROC: 5A1D70Z Performance of Urinary Filtration, Intermittent, Less than 6 Hours Per Day (ICD-10-PCS; 2024-09-06)
DX: E11.649 Type 2 diabetes mellitus with hypoglycemia without coma (principal); J96.21 Acute and chronic respiratory failure with hypoxia; E87.1 Hypo-osmolality and hyponatremia; I42.2 Other hypertrophic cardiomyopathy; I12.0 Hypertensive chronic kidney disease with stage 5 chronic kidney disease or end stage renal disease; G93.40 Encephalopathy, unspecified; E87.70 Fluid overload, unspecified; N18.6 End stage renal disease; D69.6 Thrombocytopenia, unspecified; D63.1 Anemia in chronic kidney disease; I27.20 Pulmonary hypertension, unspecified; I49.5 Sick sinus syndrome; I27.21 Secondary pulmonary arterial hypertension; I25.10 Atherosclerotic heart disease of native coronary artery without angina pectoris; J44.9 Chronic obstructive pulmonary disease, unspecified; E66.9 Obesity, unspecified; E11.22 Type 2 diabetes mellitus with diabetic chronic kidney disease; Z95.0 Presence of cardiac pacemaker; Z99.2 Dependence on renal dialysis; Z99.81 Dependence on supplemental oxygen; Z88.0 Allergy status to penicillin; Z55.6 Problems related to health literacy; Z68.33 Body mass index [BMI] 33.0-33.9, adult
CPT/HCPCS: 36415; 36573; 71045; 80048; 82962; 83036; 83880; 84484; 85025; 86705; 86709; 87340; 90935; 93005; 94640; 97162; 97535; 99285; C1725; C1893; J1610; J1815

== ENCOUNTER → 2024-10-31 | Outpatient (CLI) | payer MEDICARE, MEDICAID ==
[~2024-10-31] MED LIST changes: +GABA-1180 PO; -GABA-532 PO; -GLIP10TA3 PO; -INSULIN SUBCUT; -LINA5TAB PO
== END | disposition home or self-care (01) ==
LOC: MAMMO 07:22
DX: N64.89 Other specified disorders of breast (principal); I51.7 Cardiomegaly; R05.9 Cough, unspecified; R09.89 Other specified symptoms and signs involving the circulatory and respiratory systems; E66.9 Obesity, unspecified
CPT/HCPCS: 71045; 76642; 77062; 77066; 93970; G0279